=== PATIENT | female | born 1955 | race Caucasian/White ===

== ENCOUNTER 2025-03-21 06:25 | Day surgery (SDC) | payer MEDICARE, SELFPAY ==
--- OUTSIDE RECORDS SUMMARY | 2025-02-20 13:54 | XMS_ITS | Encounter Summary ---
Author Organization [facility], Address [address] [place] [phone] Phone Care Team Providers Care An Employee Sponsor Or Advocate And Name Role Phone Gisele Graves MD Primary Care Provider Reason for Visit * Reason Comments Med Change Request Encounter Details Date Type Department Care Team (Late st Contact Info) Description 07/04/2023 Refill [facility] [address] [place] [phone] Shae Muller PA [address] [place] [address] [place] [address] Social History Tobacco Use Types Packs/Day Years Used Date Smoking Tobacco: Never Alcohol Use Standard Drinks/Week Comments No 0 (1 standard drink = 0.6 oz pure alcohol) Alcoholic Drinks/day: Occasional social drink Comments Unknown Sex and Gender Information Value Date Recorded Sex Assigned at Not on file Legal Sex Female 4:35 PM EST Gender Identity Not on file Sexual Orientation Not on file documented as of this encounter Plan of Treatment Upcoming Encounters Date Type Department Care Team (Late st Contact Info) Description 04/16/2025 9:15 AM EDT Office Visit [facility] [address] [place] [phone] Jose Martínez MD [address] [place] [address] [place] [address] documented as of this encounter Visit Diagnoses Not on filedocumented in this encounter Care Teams An Employee Sponsor Or Advocate And Relationship Specialty Start Date End Date Gisele Graves MD [address] [place] [phone] PCP - General Mathematical Technician 06/26/24 documented as of this encounter
--- OUTSIDE RECORDS SUMMARY | 2025-02-20 13:54 | XMS_ITS | Encounter Summary ---
Author Organization [facility], Address [address] [place] [phone] Phone Care Team Providers Care Scanner Supervisor Name Role Phone Gisele Graves MD Primary Care Provider [phone] Reason for Visit * Reason Comments Med Refill Encounter Details Date Type Department Care Team (Late Contact Info) Description 09/07/2020 [facility] [address] [place] [phone] Billy Marks MD [address] [place] [address] [place] [address] Social History Tobacco Use Types Packs/Day Years [...] Encounters Date Type Department Care Team (Late Contact Info) Description 04/16/2025 9:15 AM EDT Office Visit [facility] [address] [place] [address] Jose Martínez MD [address] [place] [address] [place] [address] documented as of this encounter Visit Diagnoses Not on filedocumented in this encounter Care Teams Scanner Supervisor Relationship Specialty Start Date End Date Gisele Graves MD [address] [place] [phone] PCP - General Sand Digger 06/26/24 documented as of this encounter
--- OUTSIDE RECORDS SUMMARY | 2025-02-20 13:54 | XMS_ITS | Encounter Summary ---
Author Organization [facility], Address [address] [place] [phone] Phone Care Team Providers Care Telemetry Nurse Name Role Phone Gisele Graves MD Primary Care Provider [phone] Encounter Details Date Type Department Care Team (Late st Contact Info) Description 04/29/2024 Documentation Only [facility] [place], [address] [place] [address] Serene MontesAIKEN, [place] [address] [place] [address] Social History Tobacco Use Types Packs/Day Years [...] Visit [facility] [address] [place] [address] Jose Martínez MD [address] [facility] [place] [address] documented as of this encounter Visit Diagnoses Not on filedocumented in this encounter Care Teams Telemetry Nurse Relationship Specialty Start Date End Date Gisele Graves MD [address] [place] [phone] PCP - General Pharmacy Care Coordinator 06/26/24 documented as of this encounter
--- OUTSIDE RECORDS SUMMARY | 2025-02-20 13:54 | XMS_ITS | Patient Health Record ---
Author Organization [facility] Address [address] [place] [address] Care Team Providers Care Vp Software Support Name Role Phone Jo Graves Primary Care Provider Sanjiv Salcido Unavailable [phone] Allergies No Known Allergies Reason For Referral Referring Provider First Name Jo Referring Provider Last Name Star Referred Organization [facility] Referred Provider Sanjiv Baron Referred Address [address] [facility],[place], [place],[address], Referred Provider Specialty Gastroentero logy General Notes Kathy Lemus 2024 09:27:45 AM >REQUESTED AN O BLUE REFERRAL FOR VISIT WITH DR BARON ON 12-17-24. CALL[address] DR GRAVES Referral Priority Routine Medications Medication SIG (Take, Route, Frequency, Duration) Notes Start Date End Date Status Tacrolimus 1 MG as directed Orally Active Carvedilol 25 MG 1 tablet with food O rally Twice a day Active Calcium Active Mycophenolic Acid 180 MG 2 tablets Orall y Twice a day Active Fosamax Active Pravastatin Sodium 20 MG TAKE 1 TABLET B Y MOUTH EVERY DAY Oral for 90 Days Activ e Vitamin D 2000 UNIT 1 tablet Orally Once a day Active Decatur 3 Active Allopurinol 100 MG Oral for 90 Days Active valGANciclovir HCl 450 MG TAKE 1 TABLET DAILY Oral for 30 Days Active Lisinopril 40 MG 1 tablet Orally Once a day Active PredniSONE (Marcello) 5 MG 1 Orally QD Active Problems Problem Type SNOMED Code ICD Code Onset Dates Problem Status W/U Status Risk Notes Problem 217826282 Encounter for screening for malignant neoplasm of colon (Z12.11) Active confirmed Problem Dysphagia (31197948) Dysphagia (R13.10) Active confirmed Problem 30267810 Preprocedural examination (Z01.818) Active confirmed Problem Gastroesophageal reflux disease (438737061) GERD (gastroesophagea l reflux disease) (K21.9) Active confirmed Vital Signs Blood pressure diastolic 77 mm Hg 12/17/2024 Height 66.5 in 12/17/2024 Blood pressure systolic 11 mm Hg 12/17/2024 Weight 162 lbs 12/17/2024 BMI 25.75 kg/m2 12/17/2024 Procedures Procedure Date Ordered Date Performed Result Body Sit e UPPER GI ENDOSCOPY BALLOOON DILATION OF ESOPH 12/17/2024 N/A COLONOSCOPY 12/17/2024 N/A Encounters Encounter Location Date Provider Diagnosis [facility] [address] [place] [address] 12/17/2024 Sanjiv Baron Encounter for screening for malignant neoplasm of colon Z12.11 ; GERD (gastroesophageal reflux disease) K21.9 and Dysphagia R13.10 Assessments Encounter Date Diagnosis (ICD Code) Assessment Notes Treatment Notes Treatment Clinical Notes Section Notes 12/17/2024 Encounter for screening for malignant neoplasm of colon (ICD-10 - Z12.11) Ask the Diesel Powerplant Supervisor which clear beverage would be best for you to mix the Miralax in. Be careful eating and swallowing in general. Overall, Kelvin appears well. I did recommend a colonoscopy for screening purposes given her age, good clinical appearance, and her last exam being in 2014. We did review the rationale for this in regard to colon cancer prevention. Full consent has been obtained for this, including risks of bleeding and perforation. She will have a MiraLAX prep and I advised her to speak with her principal database developer to see what they would recommend as far as a clear liquid beverage so as to avoid any excess salt intake. I have also recommended an upper endoscopy on the same day given her longstanding reflux and intermittent dysphagia so as to rule out anything such as Chen's esophagus, esophageal stricture, significant esophagitis, and/or a hiatal hernia. We did review that depending upon the findings I can perform a balloon dilation at that time if she has an esophageal stricture or ring. Depending upon the endoscopic findings she may benefit from some chronic acid suppression with something such as a PPI or H2 smith. Full consent has been obtained from her for the upper endoscopy, including risks of bleeding and perforation. Both procedures will be done with monitored anesthesia care. Kelvin and her were comfortable with this plan. Thank you again for allowing me to participate in Kelvin's care. I shall continue to keep you advised of her progress. 12/17/2024 GERD (gastroesopha geal reflux disease) (ICD-10 - K21.9) Overall, Kelvin appears well. I did recommend a colonoscopy for screening purposes given her age, good clinical appearance, and her last exam being in 2014. We did review the rationale for this in regard to colon cancer prevention. Full consent has been obtained for this, including risks of bleeding and perforation. She will have a MiraLAX prep and I advised her to speak with her principal database developer to see what they would recommend as far as a clear liquid beverage so as to avoid any excess salt intake. I have also recommended an upper endoscopy on the same day given her longstanding reflux and intermittent dysphagia so as to rule out anything such as Chen's esophagus, esophageal stricture, significant esophagitis, and/or a hiatal hernia. We did review that depending upon the findings I can perform a balloon dilation at that time if she has an esophageal stricture or ring. Depending upon the endoscopic findings she may benefit from some chronic acid suppression with something such as a PPI or H2 smith. Full consent has been obtained from her for the upper endoscopy, including risks of bleeding and perforation. Both procedures will be done with monitored anesthesia care. Kelvin and her were comfortable with this plan. Thank you again for allowing me to participate in Kelvin's care. I shall continue to keep you advised of her progress. 12/17/2024 Dysphagia (ICD-10 - R13.10) Overall, Kelvin appears well. I did recommend a colonoscopy for screening purposes given her age, good clinical appearance, and her last exam being in 2014. We did review the rationale for this in regard to colon cancer prevention. Full consent has been obtained for this, including risks of bleeding and perforation. She will have a MiraLAX prep and I advised her to speak with her principal database developer to see what they would recommend as far as a clear liquid beverage so as to avoid any excess salt intake. I have also recommended an upper endoscopy on the same day given her longstanding reflux and intermittent dysphagia so as to rule out anything such as Chen's esophagus, esophageal stricture, significant esophagitis, and/or a hiatal hernia. We did review that depending upon the findings I can perform a balloon dilation at that time if she has an esophageal stricture or ring. Depending upon the endoscopic findings she may benefit from some chronic acid suppression with something such as a PPI or H2 smith. Full consent has been obtained from her for the upper endoscopy, including risks of bleeding and perforation. Both procedures will be done with monitored anesthesia care. Kelvin and her were comfortable with this plan. Thank you again for allowing me to participate in Kelvin's care. I shall continue to keep you advised of her progress. Plan Of Treatment Pending Test Test Name Order Date UPPER GI ENDOSCOPY BALLOOON DILATION OF ESOPH 12/17/2024 COLONOSCOPY 12/17/2024 Future Test Test Name Order Date COLONOSCOPY 04/01/2015 Next Appt Details Provider Name:Sanjiv Baron , 03/21/2025 07:30:00 AM, [address] [place] [address], [phone], Insurance Providers Payer Name Payer Address Payer Phone Subscriber Number Group Number Insured Name Patient Relationship to Insured Coverage Start Date Coverage End Date [facility] [employer] [address] [place] [address] [id number] KELVIN RODRÍGUEZ Self - patient is the insured Medical (General) History Medical History History ICD Code Colonoscopy 11/08/2004- sigmoid divertic ulosis and internal hemorrhoids Polycystic kidney disease- e ventual renal failure and renal transplant as below- sees Dr. 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
--- OUTSIDE RECORDS SUMMARY | 2025-02-20 13:54 | XMS_ITS | Encounter Summary ---
Author Organization [facility], Address [address] [place] [phone] Phone Care Team Providers Care Pathology Technologist Name Role Phone Gisele Graves MD Primary Care Provider [phone] Reason for Visit * Reason Comments Med Refill Encounter Details Date Type Department Care Team (Late Contact Info) Description 06/21/2019 [facility]ill [facility] [address] [place] [phone] Billy Marks MD [address] [facility] [place] [address] Social History Tobacco Use Types Packs/Day Years Used Date Smoking Tobacco: Never Alcohol Use Standard Drinks/Week Comments No 0 (1 standard drink = 0.6 oz pur e alcohol) Comments Unknown Sex and Gender Information Value Date Recorded Sex Assigned at Not on file Legal Sex Female 4:35 PM EST Gender Identity Not on file Sexual Orientation Not on file documented as of this encounter Plan of Treatment Upcoming Encounters Date Type Department Care Team (Late Contact Info) Description 04/16/2025 9:15 AM EDT Office Visit [facility] [address] [place] [address] Jose Martínez MD [address] [facility] [place] [address] documented as of this encounter Visit Diagnoses Not on filedocumented in this encounter Care Teams Pathology Technologist Relationship Specialty Start Date End Date Gisele Graves MD [address] [place] [phone] PCP - General Sales Intern 06/26/24 documented as of this encounter
--- OUTSIDE RECORDS SUMMARY | 2025-02-20 13:54 | XMS_ITS | Encounter Summary ---
Author Organization [facility], Address [address] [place] [phone] Phone Care Team Providers Care System Support Administrator Name Role Phone Gisele Graves MD Primary Care Provider Reason for Visit * Reason Onset Date Comments Med Refill 10/16/2024 Encounter Details Date Type Department Care Team (Late st Contact Info) Description 10/16/2024 [facility]ill [facility] [address] [place] [address] Jose Martínez MD [address] [place] [address] [place] [address] Social History Tobacco Use Types [...] Visit [facility] [address] [place] [phone] Jose Martínez MD [address] [place] [address] [place] [address] documented as of this encounter Visit Diagnoses Not on filedocumented in this encounter Care Teams System Support Administrator Relationship Specialty Start Date End Date Gisele Graves MD [address] [place] [phone] PCP - General Flagman 06/26/24 documented as of this encounter
--- OUTSIDE RECORDS SUMMARY | 2025-02-20 13:54 | XMS_ITS | Clinical Summary ---
Author Organization [facility], Address [address] [place] [address] [place] [address] Phone Care Team Providers Care Applications Specialist Name Role Phone Gisele Graves MD Primary Care Provider [phone] Allergies Active Allergy Reactions Criticality Noted Date Comments Other Other (see comments) 07/22/2019 Medications pravastatin (PRAVACHOL) 10 MG tablet Take 10 mg by mouth 09/29/19 24 Active amoxicillin (AMOXIL) 500 MG capsule Take 4 capsules (2,000 mg total) by mouth 1 (one) time each day Take 4 capsules one hour prior to dental appointment 12 capsule 1 08/29/19 25 Active allopurinol (ZYLOPRIM) 100 MG tablet Take 1 tablet (100 mg total) by mouth 1 (one) time each day 90 tablet 3 10/17/19 25 026 Active carvedilol (Coreg) 25 MG tablet Take 1 tablet (25 mg total) by mouth in the morning and 1 tablet (25 mg total) in the evening. Take with meals. 180 tablet 3 10/17/19 25 026 Active lisinopril 20 MG tablet Take 2 tablets (40 mg total) by mouth 1 (one) time each day 180 tablet 3 10/17/19 25 026 Active predniSONE 5 MG tablet Take 1 tablet (5 mg total) by mouth 1 (one) time each day 90 tablet 3 10/17/19 25 Active mycophenolate (MYFORTIC) 180 MG EC tablet Take 1 tablet (180 mg total) by mouth in the morning and 1 tablet (180 mg total) in the evening. 180 tablet 3 11/14/19 25 026 Active valGANciclovir (Valcyte) 450 MG tabletIndications:His tory of renal transplant,Stage 3b chronic kidney disease (HCC),Cytomegalovirus infection (HCC) Take 1 tablet (450 mg total) by mouth every other day Take 1 tab daily 15 tablet 11 01/02/20 25 026 Active tacrolimus (Prograf) 0.5 MG capsuleIndications:Hi story of renal transplant,History of immunosuppressive therapy,Stage 3b chronic kidney disease (HCC) Take 1 capsule (0.5 mg total) by mouth in the morning and 1 capsule (0.5 mg total) in the evening. 180 capsule 3 01/15/20 25 026 Active Active Problems Problem Noted Date Diagnosed Date Cytomegalovirus infection 10/01/2024 Stage 3b chronic kidney disease 07/04/2023 Caregiver role strain 02/08/2023 02/21/2023 Statin not tolerated 07/09/2022 Subclinical hypothyroidism 04/06/2021 Memory impairment 03/17/2020 Essential hypertension 07/23/2019 Chronic kidney disease due to hypertension 07/22 History of immunosuppressive therapy 07/22/2019 History of renal transplant 07/22/2019 Hyperlipidemia 07/22/2019 Hyperuricemia 07/22/2019 Resolved Problems Problem Noted Date Diagnosed Date Resolved Date Thyroid nodule 04/06/2021 02/21/2023 Diarrhea 11/24/2020 02/21/2023 Knee pain <Right side> 07/21/202002/21 Chronic kidney disease stage 4 07/22/2019 11/14/2023 Encounters Date Type Department Care Team Description 02/05/2025 9:45 AM EDT Office Visit [facility] [address] [place] [address] Jose Martínez MD History of renal transplant (Primary Dx); History of immunosuppressive therapy; Stage 3b chronic kidney disease (HCC); Cytomegalovirus infection (HCC) 01/28/2025 Orders Only [facility], [address] [place] [address] Serene Montes MA History of renal transplant (Primary Dx); History of immunosuppressive therapy; Stage 3b chronic kidney disease (HCC); Hypovolemia; Hyperlipidemia, not otherwise specified; Other iron deficiency anemia; Other specified hypoparathyroidism (HCC); Albuminuria, not otherwise specified; BK virus nephropathy; 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/2025 Orders Only [facility] [address] [place] [address] Anette Graves RN Stage 3b chronic kidney disease (HCC) (Primary Dx); History of renal transplant; History of immunosuppressive therapy 01/14/2025 Telephone [facility] [address] [place] [address] Anette Graves RN 01/10/2025 Office Communication [facility] [address] [place] [address] Anette Graves RN 01/07/2025 Orders Only [facility] [address] [place] [address] Anette Graves RN History of renal transplant (Primary Dx); History of immunosuppressive therapy; Cytomegalovirus infection (HCC); Stage 3b chronic kidney disease (HCC) 01/01/2025 Refill [facility] [address] [place] [address] Jose Martínez MD History of renal transplant; Stage 3b chronic kidney disease (HCC); Cytomegalovirus infection (HCC) 12/11/2024 9:00 AM EDT Office Visit [facility] [address] [place] [address] Jose Martínez MD History of renal transplant (Primary Dx); History of immunosuppressive therapy; Stage 3b chronic kidney disease (HCC); History of cytomegalovirus infection 12/06/2024 Orders Only [facility] [address] [place] [address] Anette Graves RN Stage 3b chronic kidney disease (HCC) (Primary Dx); Cytomegalovirus infection (HCC); History of renal transplant 12/04/2024 Refill [facility] [address] [place] [phone] Jose Martínez MD History of renal transplant; Stage 3b chronic kidney disease (HCC); Cytomegalovirus infection (HCC) 12/02/2024 Orders Only [facility] [address] [place] [phone] Anette Graves RN History of renal transplant (Primary Dx); Stage 3b chronic kidney disease (HCC); Cytomegalovirus infection (HCC) 11/25/2024 Orders Only [facility] [address] [place] [address] Anette Graves RN Stage 3b chronic kidney disease (HCC) (Primary Dx); History of renal transplant; History of immunosuppressive therapy; Hyperlipidemia, not otherwise specified; Hyperuricemia; Subclinical hypothyroidism; Cytomegalovirus infection (HCC); Iron deficiency anemia, not otherwise specified; Vitamin D deficiency, not otherwise specified from Last 3 Months Immunizations Immunization Administration Dates Next Due Influenza Split High Dose Preservative Free IM 03/19/2015 Influenza Whole 04/08/2019 Influenza, MDCK, PF, Quadrivalent 04/08/2019 Influenza, MDCK, Quadrivalen t, with preservative 04/06/2021,04/03/2017 Influenza, Quadrivalent, Pre servative Free 03/30/2020 Influenza, Unspecified 03/23/2022,2020,03/30/2020,2017,05/16/2016,02/10/2014,04/09/2012,1 06/24/2005 Pfizer SARS-COV-2 03/05/2021,10/12/2020,09/22/19 21 Pneumococcal Conjugate 13-Valent 01/15/2020,06/20 SARS-CoV-2, Unspecified 04/05/2022,08/30/2021 Family History Medical History Relation Comments Hypertension Father Kidney disease Father Stroke Father Kidney disease Sibling 1 Diabetes Sibling 2 Hypertension Sibling 3 Relation Status Comments Father Sibling 1 Sibling 2 Sibling 3 Social History Tobacco Use Types Packs/Day Years Used Date Smoking Tobacco: Never Alcohol Use Standard Drinks/Week Comments No 0 (1 standard drink = 0.6 oz pure alcohol) Alcoholic Drinks/day: Occasional social drink Comments Unknown Sex and Gender Information Value Date Recorded Sex Assigned at Not on file Legal Sex Female 4:35 PM EST Gender Identity Not on file Sexual Orientation Not on file Last Filed Vital Signs Vital Sign Reading Time Taken Comments Blood Pressure 106/66 12/11/2024 9:29 AM EDT Pulse 66 09/30/2024 1:18 PM EDT Temperature 37.4 C (99.3 F) 02/13/2024 4:31 PM EDT Respiratory Rate 22 12/04/2017 12:00 PM EDT Oxygen Saturation - - Inhaled Oxygen Concentration - - Weight 75.4 kg (166 lb 3.2 oz) 09/30/2024 1:18 P M EDT Height 167.6 cm (5' 6 ) 05/28/2024 8:47 AM EST Body Mass Index 26.83 05/28/2024 8:47 AM EST Plan of Treatment Upcoming Encounters Date Type Department Care Team (Late st Contact Info) Description 04/16/2025 9:15 AM EDT Office Visit [facility] [address] [place] [address] Jose Martínez MD [address] [place] [address] [place] [phone] Health Maintenance Due Date Last Done Comments Breast Cancer Screening 1955 Colonoscopy (Post-Transplant Patient) 01/29/2020 Mammogram (Post-Transplant Patient) 01/29/2020 Pelvic Exam (Post-Transplant Patient) 01/29/2020 Pneumococcal Vaccine: 50+ Years (2 of 2 - PPSV23, PCV20, or PCV21) 03/11/2020 01/15/2020, 07/10/2017 Influenza Vaccine (#1) 2025 2, 04/06/2021, 04/06/2021, Additional history exists Pneumococcal Vaccine: Peds (0 to 5 Years) and At-Risk Patients (6 to 49 Years) Discontinued 01/15/2020, 07/10/2017 Hepatitis B Vaccine Aged Out No longe r eligible based on patient's age to complete this topic Procedures Procedure Name Priority Date/Time Associated Diagnosis Comments REFLEXIVE URINE CULTURE (HC) Routine 02/03/2025 9:09 AM EDT BK VIRUS, DNA, QUANTITATIVE Routine 02/03/2025 9:09 AM EDT History of renal transplant History of immunosuppressive therapy Stage 3b chronic kidney disease (HCC) Hypovolemia Hyperlipidemia, not otherwise specified Other iron deficiency anemia Other specified hypoparathyroidism (HCC) Albuminuria, not otherwise specified BK virus nephropathy Cytomegaloviral colitis (HCC) BK VIRUS, DNA, URINE, QUANTITATIVE Routine 02/03/2025 9:09 AM EDT History of renal transplant History of immunosuppressive therapy Stage 3b chronic kidney disease (HCC) Hypovolemia Hyperlipidemia, not otherwise specified Other iron deficiency anemia Other specified hypoparathyroidism (HCC) Albuminuria, not otherwise specified BK virus nephropathy Cytomegaloviral colitis (HCC) CMV DNA, QUANTITATIVE, PCR Routine 02/03/2025 9:09 AM EDT History of renal transplant History of immunosuppressive therapy Stage 3b chronic kidney disease (HCC) Hypovolemia Hyperlipidemia, not otherwise specified Other iron deficiency anemia Other specified hypoparathyroidism (HCC) Albuminuria, not otherwise specified BK virus nephropathy Cytomegaloviral colitis (HCC) URINALYSIS, COMPLETE Routine 02/03/2025 9:09 AM EDT History of renal transplant History of immunosuppressive therapy Stage 3b chronic kidney disease (HCC) Hypovolemia Hyperlipidemia, not otherwise specified Other iron deficiency anemia Other specified hypoparathyroidism (HCC) Albuminuria, not otherwise specified BK virus nephropathy Cytomegaloviral colitis (HCC) URINE ALBUMIN / CREATININE RATIO Routine 02/03/2025 9:09 AM EDT History of renal transplant History of immunosuppressive therapy Stage 3b chronic kidney disease (HCC) Hypovolemia Hyperlipidemia, not otherwise specified Other iron deficiency anemia Other specified hypoparathyroidism (HCC) Albuminuria, not otherwise specified BK virus nephropathy Cytomegaloviral colitis (HCC) PTH, INTACT Routine 02/03/2025 9:09 AM EDT History of renal transplant History of immunosuppressive therapy Stage 3b chronic kidney disease (HCC) Hypovolemia Hyperlipidemia, not otherwise specified Other iron deficiency anemia Other specified hypoparathyroidism (HCC) Albuminuria, not otherwise specified BK virus nephropathy Cytomegaloviral colitis (HCC) IRON PANEL (FE, TIBC, TSAT) Routine 02/03/2025 9:09 AM EDT History of renal transplant History of immunosuppressive therapy Stage 3b chronic kidney disease (HCC) Hypovolemia Hyperlipidemia, not otherwise specified Other iron deficiency anemia Other specified hypoparathyroidism (HCC) Albuminuria, not otherwise specified BK virus nephropathy Cytomegaloviral colitis (HCC) FERRITIN Routine 02/03/2025 9:09 AM EDT History of renal transplant History of immunosuppressive therapy Stage 3b chronic kidney disease (HCC) Hypovolemia Hyperlipidemia, not otherwise specified Other iron deficiency anemia Other specified hypoparathyroidism (HCC) Albuminuria, not otherwise specified BK virus nephropathy Cytomegaloviral colitis (HCC) CREATINE KINASE Routine 02/03/2025 9:09 AM EDT History of renal transplant History of immunosuppressive therapy Stage 3b chronic kidney disease (HCC) Hypovolemia Hyperlipidemia, not otherwise specified Other iron deficiency anemia Other specified hypoparathyroidism (HCC) Albuminuria, not otherwise specified BK virus nephropathy Cytomegaloviral colitis (HCC) ALT Routine 02/03/2025 9:09 AM EDT History of renal transplant History of immunosuppressive therapy Stage 3b chronic kidney disease (HCC) Hypovolemia Hyperlipidemia, not otherwise specified Other iron deficiency anemia Other specified hypoparathyroidism (HCC) Albuminuria, not otherwise specified BK virus nephropathy Cytomegaloviral colitis (HCC) AST Routine 02/03/2025 9:09 AM EDT History of renal transplant History of immunosuppressive therapy Stage 3b chronic kidney disease (HCC) Hypovolemia Hyperlipidemia, not otherwise specified Other iron deficiency anemia Other specified hypoparathyroidism (HCC) Albuminuria, not otherwise specified BK virus nephropathy Cytomegaloviral colitis (HCC) CBC AND DIFFERENTIAL Routine 02/03/2025 9:09 AM EDT History of renal transplant History of immunosuppressive therapy Stage 3b chronic kidney disease (HCC) Hypovolemia Hyperlipidemia, not otherwise specified Other iron deficiency anemia Other specified hypoparathyroidism (HCC) Albuminuria, not otherwise specified BK virus nephropathy Cytomegaloviral colitis (HCC) RENAL FUNCTION PANEL Routine 02/03/2025 9:09 AM EDT History of renal transplant History of immunosuppressive therapy Stage 3b chronic kidney disease (HCC) Hypovolemia Hyperlipidemia, not otherwise specified Other iron deficiency anemia Other specified hypoparathyroidism (HCC) Albuminuria, not otherwise specified BK virus nephropathy Cytomegaloviral colitis (HCC) MYCOPHENOLIC ACID AND METABO. Routine 02/03/2025 9:09 AM EDT History of renal transplant History of immunosuppressive therapy Stage 3b chronic kidney disease (HCC) Hypovolemia Hyperlipidemia, not otherwise specified Other iron deficiency anemia Other specified hypoparathyroidism (HCC) Albuminuria, not otherwise specified BK virus nephropathy Cytomegaloviral colitis (HCC) TACROLIMUS, HIGHLY SENSITIVE, LC/MS/MS Routine 02/03/2025 9:09 AM EDT History of renal transplant History of immunosuppressive therapy Stage 3b chronic kidney disease (HCC) Hypovolemia Hyperlipidemia, not otherwise specified Other iron deficiency anemia Other specified hypoparathyroidism (HCC) Albuminuria, not otherwise specified BK virus nephropathy Cytomegaloviral colitis (HCC) MICROSCOPIC EXAMINATION - DO NOT USE Routine 02/03/2025 9:09 AM EDT TACROLIMUS, HIGHLY SENSITIVE, LC/MS/MS Routine 01/24/2025 9:09 AM EDT Stage 3b chronic kidney disease (HCC) History of renal transplant History of immunosuppressive therapy RENAL FUNCTION PANEL Routine 01/24/2025 9:09 AM EDT Stage 3b chronic kidney disease (HCC) History of renal transplant History of immunosuppressive therapy RESULT2 Routine 01/18/2025 9:52 AM EDT SPECIMEN STATUS REPORT Routine 01/18/2025 9:52 AM EDT RESULT Routine 01/18/2025 9:52 AM EDT RESULT Routine 01/18/2025 9:52 AM EDT OVA AND PARASITE EXAMINATION Routine 01/18/2025 9:52 AM EDT CLOSTRIDIUM DIFFICILE TOXIN Routine 01/18/2025 9:52 AM EDT History of renal transplant History of immunosuppressive therapy Stage 3b chronic kidney disease (HCC) Cytomegalovirus infection (HCC) Diarrhea OVA AND PARASITE SCREEN Routine 01/18/2025 9:52 AM EDT History of renal transplant History of immunosuppressive therapy Stage 3b chronic kidney disease (HCC) Cytomegalovirus infection (HCC) Diarrhea STOOL CULTURE Routine 01/18/2025 9:52 AM EDT History of renal transplant History of immunosuppressive therapy Stage 3b chronic kidney disease (HCC) Cytomegalovirus infection (HCC) Diarrhea TACROLIMUS, HIGHLY SENSITIVE, LC/MS/MS Routine 01/17/2025 8:55 AM EDT CMV DNA, QUANTITATIVE, PCR Routine 01/17/2025 8:55 AM EDT RENAL FUNCTION PANEL Routine 01/17/2025 8:55 AM EDT CBC AND DIFFERENTIAL Routine 01/17/2025 8:55 AM EDT CMV DNA, QUANTITATIVE, PCR Routine 01/07/2025 10:18 AM EDT History of renal transplant History of immunosuppressive therapy Stage 3b chronic kidney disease (HCC) Cytomegalovirus infection (HCC) TACROLIMUS, HIGHLY SENSITIVE, LC/MS/MS Routine 01/07/2025 10:17 AM EDT History of renal transplant History of immunosuppressive therapy Stage 3b chronic kidney disease (HCC) RENAL FUNCTION PANEL Routine 12/10/2024 10:18 AM EDT Stage 3b chronic kidney disease (HCC) Cytomegalovirus infection (HCC) History of renal transplant CMV DNA, QUANTITATIVE, PCR Routine 12/10/2024 10:18 AM EDT Stage 3b chronic kidney disease (HCC) Cytomegalovirus infection (HCC) History of renal transplant CBC AND DIFFERENTIAL Routine 12/10/2024 10:18 AM EDT Stage 3b chronic kidney disease (HCC) Cytomegalovirus infection (HCC) History of renal transplant CMV DNA, QUANTITATIVE, PCR Routine 12/04/2024 1:38 PM EDT History of renal transplant Stage 3b chronic kidney disease (HCC) Cytomegalovirus infection (HCC) CBC AND DIFFERENTIAL Routine 12/04/2024 1:38 PM EDT History of renal transplant Stage 3b chronic kidney disease (HCC) Cytomegalovirus infection (HCC) REFLEXIVE URINE CULTURE (HC) Routine 11/26/2024 8:15 AM EDT BK VIRUS, DNA, QUANTITATIVE Routine 11/26/2024 8:15 AM EDT Stage 3b chronic kidney disease (HCC) History of renal transplant History of immunosuppressive therapy Hyperlipidemia, not otherwise specified Hyperuricemia Subclinical hypothyroidism Cytomegalovirus infection (HCC) Iron deficiency anemia, not otherwise specified Vitamin D deficiency, not otherwise specified BK VIRUS, DNA, URINE, QUANTITATIVE Routine 11/26/2024 8:15 AM EDT Stage 3b chronic kidney disease (HCC) History of renal transplant History of immunosuppressive therapy Hyperlipidemia, not otherwise specified Hyperuricemia Subclinical hypothyroidism Cytomegalovirus infection (HCC) Iron deficiency anemia, not otherwise specified Vitamin D deficiency, not otherwise specified CMV DNA, QUANTITATIVE, PCR Routine 11/26/2024 8:15 AM EDT Stage 3b chronic kidney disease (HCC) History of renal transplant History of immunosuppressive therapy Hyperlipidemia, not otherwise specified Hyperuricemia Subclinical hypothyroidism Cytomegalovirus infection (HCC) Iron deficiency anemia, not otherwise specified Vitamin D deficiency, not otherwise specified URINALYSIS, COMPLETE Routine 11/26/2024 8:15 AM EDT Stage 3b chronic kidney disease (HCC) History of renal transplant History of immunosuppressive therapy Hyperlipidemia, not otherwise specified Hyperuricemia Subclinical hypothyroidism Cytomegalovirus infection (HCC) Iron deficiency anemia, not otherwise specified Vitamin D deficiency, not otherwise specified URINE ALBUMIN / CREATININE RATIO Routine 11/26/2024 8:15 AM EDT Stage 3b chronic kidney disease (HCC) History of renal transplant History of immunosuppressive therapy Hyperlipidemia, not otherwise specified Hyperuricemia Subclinical hypothyroidism Cytomegalovirus infection (HCC) Iron deficiency anemia, not otherwise specified Vitamin D deficiency, not otherwise specified CREATINE KINASE Routine 11/26/2024 8:15 AM EDT Stage 3b chronic kidney disease (HCC) History of renal transplant History of immunosuppressive therapy Hyperlipidemia, not otherwise specified Hyperuricemia Subclinical hypothyroidism Cytomegalovirus infection (HCC) Iron deficiency anemia, not otherwise specified Vitamin D deficiency, not otherwise specified AST Routine 11/26/2024 8:15 AM EDT Stage 3b chronic kidney disease (HCC) History of renal transplant History of immunosuppressive therapy Hyperlipidemia, not otherwise specified Hyperuricemia Subclinical hypothyroidism Cytomegalovirus infection (HCC) Iron deficiency anemia, not otherwise specified Vitamin D deficiency, not otherwise specified ALT Routine 11/26/2024 8:15 AM EDT Stage 3b chronic kidney disease (HCC) History of renal transplant History of immunosuppressive therapy Hyperlipidemia, not otherwise specified Hyperuricemia Subclinical hypothyroidism Cytomegalovirus infection (HCC) Iron deficiency anemia, not otherwise specified Vitamin D deficiency, not otherwise specified PTH, INTACT Routine 11/26/2024 8:15 AM EDT Stage 3b chronic kidney disease (HCC) History of renal transplant History of immunosuppressive therapy Hyperlipidemia, not otherwise specified Hyperuricemia Subclinical hypothyroidism Cytomegalovirus infection (HCC) Iron deficiency anemia, not otherwise specified Vitamin D deficiency, not otherwise specified IRON PANEL (FE, TIBC, TSAT) Routine 11/26/2024 8:15 AM EDT Stage 3b chronic kidney disease (HCC) History of renal transplant History of immunosuppressive therapy Hyperlipidemia, not otherwise specified Hyperuricemia Subclinical hypothyroidism Cytomegalovirus infection (HCC) Iron deficiency anemia, not otherwise specified Vitamin D deficiency, not otherwise specified FERRITIN Routine 11/26/2024 8:15 AM EDT Stage 3b chronic kidney disease (HCC) History of renal transplant History of immunosuppressive therapy Hyperlipidemia, not otherwise specified Hyperuricemia Subclinical hypothyroidism Cytomegalovirus infection (HCC) Iron deficiency anemia, not otherwise specified Vitamin D deficiency, not otherwise specified MAGNESIUM Routine 11/26/2024 8:15 AM EDT Stage 3b chronic kidney disease (HCC) History of renal transplant History of immunosuppressive therapy Hyperlipidemia, not otherwise specified Hyperuricemia Subclinical hypothyroidism Cytomegalovirus infection (HCC) Iron deficiency anemia, not otherwise specified Vitamin D deficiency, not otherwise specified LIPID PANEL Routine 11/26/2024 8:15 AM EDT Stage 3b chronic kidney disease (HCC) History of renal transplant History of immunosuppressive therapy Hyperlipidemia, not otherwise specified Hyperuricemia Subclinical hypothyroidism Cytomegalovirus infection (HCC) Iron deficiency anemia, not otherwise specified Vitamin D deficiency, not otherwise specified URIC ACID Routine 11/26/2024 8:15 AM EDT Stage 3b chronic kidney disease (HCC) History of renal transplant History of immunosuppressive therapy Hyperlipidemia, not otherwise specified Hyperuricemia Subclinical hypothyroidism Cytomegalovirus infection (HCC) Iron deficiency anemia, not otherwise specified Vitamin D deficiency, not otherwise specified VITAMIN D 25 HYDROXY Routine 11/26/2024 8:15 AM EDT Stage 3b chronic kidney disease (HCC) History of renal transplant History of immunosuppressive therapy Hyperlipidemia, not otherwise specified Hyperuricemia Subclinical hypothyroidism Cytomegalovirus infection (HCC) Iron deficiency anemia, not otherwise specified Vitamin D deficiency, not otherwise specified CBC AND DIFFERENTIAL Routine 11/26/2024 8:15 AM EDT Stage 3b chronic kidney disease (HCC) History of renal transplant History of immunosuppressive therapy Hyperlipidemia, not otherwise specified Hyperuricemia Subclinical hypothyroidism Cytomegalovirus infection (HCC) Iron deficiency anemia, not otherwise specified Vitamin D deficiency, not otherwise specified RENAL FUNCTION PANEL Routine 11/26/2024 8:15 AM EDT Stage 3b chronic kidney disease (HCC) History of renal transplant History of immunosuppressive therapy Hyperlipidemia, not otherwise specified Hyperuricemia Subclinical hypothyroidism Cytomegalovirus infection (HCC) Iron deficiency anemia, not otherwise specified Vitamin D deficiency, not otherwise specified MYCOPHENOLIC ACID AND METABO. Routine 11/26/2024 8:15 AM EDT Stage 3b chronic kidney disease (HCC) History of renal transplant History of immunosuppressive therapy Hyperlipidemia, not otherwise specified Hyperuricemia Subclinical hypothyroidism Cytomegalovirus infection (HCC) Iron deficiency anemia, not otherwise specified Vitamin D deficiency, not otherwise specified TACROLIMUS, HIGHLY SENSITIVE, LC/MS/MS Routine 11/26/2024 8:15 AM EDT Stage 3b chronic kidney disease (HCC) History of renal transplant History of immunosuppressive therapy Hyperlipidemia, not otherwise specified Hyperuricemia Subclinical hypothyroidism Cytomegalovirus infection (HCC) Iron deficiency anemia, not otherwise specified Vitamin D deficiency, not otherwise specified MICROSCOPIC EXAMINATION - DO NOT USE Routine 11/26/2024 8:15 AM EDT from Last 3 Months Results * Reflexive Urine Culture (02/03/2025 9:09 AM EDT) Only the most recent of2 resultswithin the time period is included. Culture Result, Urine Final report [facility] Result Comment Jose Saba Comment: Culture shows less than 10,000 colony forming units of bacteria per milliliter of urine. This colony count is not generally considered to be clinically significant. 02/03/2025 9:09 AM EDT 02/03/2025 Jose Martínez MD LAB HISTORICAL-CONVERSIONS -UNSOLICITED RESULTS Final Result [facility] [address], [address] [place] [address] * Tacrolimus, Highly Sensitive, LC/MS/MS (02/03/2025 9:09 AM EDT) Only the most recent of5 resultswithin the time period is included. Tacrolimus by Immunoassay 7.9 5.0 - 20.0 ng/mL [facility] Comment: Detection Limit = 0.8 ng/mL Target steady state trough concentration for Tacrolimus varies based on type of organ transplant immunosuppressive protocol and other patient specific factors. Tacrolimus trough concentrations should be interpreted in conjunction with clinical assessments of rejection and tolerability. Values obtained with different assay methods cannot be used interchangeably due to differences in assay methods and cross-reactivty with metabolites, nor should correction factors be applied. Therefore, consistent use of one assay for individual patients is recommended. Tacrolimus assay performed by [facility] [employer]. 02/03/2025 9:09 AM EDT 02/03/2025 us Jose Martínez MD LAB BLOOD ORDERABLES Final Result [facility] [address] [place] [address] * (ABNORMAL) Urinalysis, Complete w/reflex to Culture (02/03/2025 9:09 AM EDT) Only the most recent of2 resultswithin the time period is included. Specific [place], Urine 1.014 1.005 - 1.030 [facility] pH Urine 5.5 5.0 - 7.5 [facility] Color, Urine Yellow Yellow [facility] Appearance Urine Cloudy(A) Clear [facility] [place] WBC Esterase Urine 3+(A) Negative [facility] Protein, Ur 1+(A) Negative/Tra ce [facility] Glucose, Ur Negative Negative [facility] Ketones, Urine Negative Negative [facility] [place] [phone] Blood Urine Trace(A) Negative [facility] Bilirubin Urine Negative Negative [facility] [place] Urobilinogen Urine 0.2 0.2 - 1.0 mg/dL [facility] Nitrite, Urine Negative Negative [facility] [place] Microscopic Examination See below: [facility] Comment:Microscopic was mechelle cated and was performed. URINALYSIS REFLEX Comment [facility] [phone] Comment:This specimen has re flexed to a Urine Culture. Urine Urine specimen obtained by clean catch procedure / Unknown 02/03/2025 9:09 AM EDT 02/03/2025 Jose Martínez MD LAB URINE ORDERABLES Final Result [facility] [address] [place] [address] * Mycophenolic Acid and Metabo. (02/03/2025 9:09 AM EDT) Only the most recent of2 resultswithin the time period is included. Mycophenolic Acid 2.2 1.0 - 3.5 ug/mL [facility] Mycophenolic Acid Glucuronide 63 35 - 100 ug/mL [facility] Blood Venous blood / Unknown 02/03/2025 9:09 AM EDT 02/03/2025 Narrative [facility] - 02/07/2025 6:06 PM EDT Test(s) 037771-Imkzijdfoaof Acid; 345986- Mycophenolic Acid Glucuronide was developed and its performance characteristics determined by [facility]. It has not been cleared or approved by the Food and Drug Administration. Jose Martínez MD LAB BLOOD ORDERABLES Final Result Performing Organization Address City/[facility]/ZIP Co de Phone Number [facility] [address] [place] [phone] * (ABNORMAL) Microscopic Examination (02/03/2025 9:09 AM EDT) Only the most recent of2 resultswithin the time period is included. WBC, Urine >30(A) 0 - 5 /hpf [facility] RBC, Urine None seen 0 - 2 /hpf [facility] Squamous Epithelial, Urine 0-10 0 - 10 /hpf [facility] Casts None seen None seen /lpf [facility] Bacteria, Urine None seen None seen/Few [facility] 02/03/2025 9:09 AM EDT 02/03/2025 Jose Martínez MD LAB MICROBIOLOGY - GENERAL ORDERABLES Final Result [facility] [address] [place] [address] * Iron Panel (Fe, TIBC, TSAT) (02/03/2025 9:09 AM EDT) Only the most recent of2 resultswithin the time period is included. TIBC 252 250 - 450 ug/dL [facility] UIBC 197 118 - 369 ug/dL [facility] Iron 55 27 - 139 ug/dL [facility] Iron Saturation (TSat) 22 15 - 55 % [facility] Blood Venous blood / Unknown 02/03/2025 9:09 AM EDT 02/03/2025 Jose Martínez MD LAB BLOOD ORDERABLES Final Result [facility] [address] [place] [address] * (ABNORMAL) Urine Albumin / Creatinine Ratio (02/03/2025 9:09 AM EDT) Only the most recent of2 resultswithin the time period is included. Creatinine, Ur 69.0 Not Estab. mg/dL [facility] Albumin, Urine 103.6 Not Estab. ug/mL [facility] Albumin/Creatin ine Ratio 150(H) 0 - 29 mg/g creat [facility] Comment: Normal: 0 - 29 Moderately increased: 30 - 300 Severely increased: >300 Urine Urine specimen obtained by clean catch procedure / Unknown 02/03/2025 9:09 AM EDT 02/03/2025 Result [facility] Jose Martínez MD LAB URINE ORDERABLES Final Result Performing Organization Address City/[facility]/ZIP Co de Phone Number [facility] [place] [address] [place] [address] * BK Virus Urine, Quant PCR (02/03/2025 9:09 AM EDT) Only the most recent of2 resultswithin the time period is included. BK VIRUS PCR, QUANT, U 209,000 Negative IU/mL [facility] Comment:The linear range of the assay is 200 - 100,000,000 IU/ml log10 BK Qn PCR Ur 5.320 log10 IU/mL [facility] Urine Urine specimen obtained by clean catch procedure / Unknown 02/03/2025 9:09 AM EDT 02/03/2025 Result [facility] Jose Martínez MD LAB URINE ORDERABLES Final Result Performing Organization Address City/[facility]/ZIP Co de Phone Number [facility] [place] [address] [place] [phone] * BK Virus DNA, Quant PCR (02/03/2025 9:09 AM EDT) Only the most recent of2 resultswithin the time period is included. BK VIRUS DNA, PCR Negative Negative IU/mL [facility] [place] Comment: No BK DNA detected. The linear range of the assay is 22 - 100,000,000 IU/mL. Blood Venous blood / Unknown 02/03/2025 9:09 AM EDT 02/03/2025 Result [facility] Jose Martínez MD LAB BLOOD ORDERABLES Final Result Performing Organization Address City/[facility]/ZIP Co de Phone Number [facility] [place] [address] [place] [address] * CMV PCR Quantitative (02/03/2025 9:09 AM EDT) Only the most recent of6 resultswithin the time period is included. CMV Quant DNA PCR Negative Negative IU/mL [facility] Comment: No CMV DNA detected. The quantitative range of this assay is 200 to 1 million IU/mL. Log 10 CMV QN DNA Plasma CANCELED log10 IU/mL [facility] Comment: Unable to calculate result since non-numeric result obtained for component test. Result canceled by the ancillary. Blood Venous blood / Unknown 02/03/2025 9:09 AM EDT 02/03/2025 Jose Martínez MD LAB BLOOD ORDERABLES Edite d Result - Final Performing Organization Address City/[facility]/ZIP Co de Phone Number [facility] [address] [place] [address] * (ABNORMAL) CBC and Differential (02/03/2025 9:09 AM EDT) Only the most recent of5 resultswithin the time period is included. WBC 3.9 3.4 - 10.8 x10E3/uL [facility] RBC 3.77 3.77 - 5.28 x10E6/uL [facility] Hemoglobin 11.6 11.1 - 15.9 g/dL [facility] Hematocrit 36.9 34.0 - 46.6 % [facility] MCV 98(H) 79 - 97 fL [facility] MCH 30.8 26.6 - 33.0 pg [facility] MCHC 31.4(L) 31.5 - 35.7 g/dL [facility] RDW 12.5 11.7 - 15.4 % [facility] Platelets 197 150 - 450 x10E3/uL [facility] Neutrophils Relative 62 Not Estab. % [facility] Lymphocytes Relative 27 Not Estab. % [facility] Monocytes 8 Not Estab. % [facility] Eosinophils Relative 1 Not Estab. % [facility] Basophils Relative 1 Not Estab. % [facility] Neutrophils Absolute 2.4 1.4 - 7.0 x10E3/uL [facility] Lymphocytes Absolute 1.1 0.7 - 3.1 x10E3/uL [facility] Monocytes Absolute 0.3 0.1 - 0.9 x10E3/uL [facility] Eosinophils Absolute 0.1 0.0 - 0.4 x10E3/uL [facility] Basophils Absolute 0.0 0.0 - 0.2 x10E3/uL [facility] Immature Granulocytes 0 Not Estab. % [facility] Immature Grans (Absolute) 0.0 0.0 - 0.1 x10E3/uL [facility] Blood Venous blood / Unknown 02/03/2025 9:09 AM EDT 02/03/2025 us Jose Martínez MD LAB BLOOD ORDERABLES Final Result [facility] [address] [place] [address] * ALT (02/03/2025 9:09 AM EDT) Only the most recent of2 resultswithin the time period is included. ALT (SGPT) 9 0 - 32 IU/L [facility] Blood Venous blood / Unknown 02/03/2025 9:09 AM EDT 02/03/2025 Jose Martínez MD LAB BLOOD ORDERABLES Final Result Performing Organization Address City/[facility]/ZIP Co de Phone Number [facility] [address] [place] [address] * AST (02/03/2025 9:09 AM EDT) Only the most recent of2 resultswithin the time period is included. AST (SGOT) 13 0 - 40 IU/L [facility] Blood Venous blood / Unknown 02/03/2025 9:09 AM EDT 02/03/2025 Jose Martínez MD LAB BLOOD ORDERABLES Final Result Performing Organization Address [facility] de Phone Number [facility] [address] [place] [address] * PTH, Intact (02/03/2025 9:09 AM EDT) Only the most recent of2 resultswithin the time period is included. PTH 59 15 - 65 pg/mL [facility] Blood Venous blood / Unknown 02/03/2025 9:09 AM EDT 02/03/2025 Jose Martínez MD LAB BLOOD ORDERABLES Final Result Performing Organization Address City/[facility] Co de Phone Number [facility] [address] [place] [address] * (ABNORMAL) Ferritin (02/03/2025 9:09 AM EDT) Only the most recent of2 resultswithin the time period is included. Ferritin 446(H) 15 - 150 ng/mL [facility] Blood Venous blood / Unknown 02/03/2025 9:09 AM EDT 02/03/2025 Jose Martínez MD LAB BLOOD ORDERABLES Final Result Performing Organization Address City/[facility] Co de Phone Number [facility] [address] [place] [address] * (ABNORMAL) CK (02/03/2025 9:09 AM EDT) Only the most recent of2 resultswithin the time period is included. Creatine Kinase (CK/CPK) 24(L) 32 - 182 U/L [facility] Blood Venous blood / Unknown 02/03/2025 9:09 AM EDT 02/03/2025 Jose Martínez MD LAB BLOOD ORDERABLES Final Result Performing Organization Address City/[facility] de Phone Number [facility] [address] [place] [address] * (ABNORMAL) Renal Function Panel (02/03/2025 9:09 AM EDT) Only the most recent of5 resultswithin the time period is included. Pathologist [facility] Glucose 82 70 - 99 mg/dL [facility] BUN 38(H) 8 - 27 mg/dL [facility] Creatinine 1.94(H) 0.57 - 1.00 mg/dL [facility] eGFR CKD-EPI CR 2020 27(L) >59 mL/min/1.7 3 [facility] BUN/Creatinine Ratio 20 12 - 28 [facility] Sodium 141 134 - 144 mmol/L [facility] Potassium 4.8 3.5 - 5.2 mmol/L [facility] Chloride 108(H) 96 - 106 mmol/L [facility] Bicarbonate (CO2) 17(L) 20 - 29 mmol/L [facility] Calcium 9.6 8.7 - 10.3 mg/dL [facility] Albumin 3.8 3.8 - 4.8 g/dL [facility] Phosphorus 3.1 3.0 - 4.3 mg/dL [facility] Blood Venous blood / Unknown 02/03/2025 9:09 AM EDT 02/03/2025 Jose Martínez MD LAB BLOOD ORDERABLES Final Result [facility] [place] [address] [place] [address] * RESULT (01/18/2025 9:52 AM EDT) C Diff Toxin B Comment [facility] [place] Comment: Negative No cytotoxin detected. 01/18/2025 9:52 AM EDT 01/18/2025 Jose Martínez MD LAB BLOOD ORDERABLES Final Result [facility] [place] [address] [place] [address] * SPECIMEN STATUS REPORT (01/18/2025 9:52 AM EDT) Specimen Status Comment [facility] Comment: Test Code Change Test Code Change Please note that the Microbiology test code was changed to reflect the specimen source or transport received. 01/18/2025 9:52 AM EDT 01/18/2025 Jose Martínez MD LAB BLOOD ORDERABLES Final Result Performing Organization Address City/[facility]/ZIP Co de Phone Number [facility] [address] [place] [address] * RESULT2 (01/18/2025 9:52 AM EDT) Result Comment [facility] Comment:No Campylobacter spe cies isolated. Result 1 Comment [facility] Comment:No Salmonella or Renetta gella recovered. 01/18/2025 9:52 AM EDT 01/18/2025 Jose Martínez MD LAB BLOOD ORDERABLES Final Result Performing Organization Address [facility] Co de Phone Number [facility] [address] [place] [address] * Result (01/18/2025 9:52 AM EDT) Result Comment [facility] Comment: No ova, cysts, or parasites seen. One negative specimen does not rule out the possibility of a parasitic infection. 01/18/2025 9:52 AM EDT 01/18/2025 Jose Martínez MD LAB MICROBIOLOGY - GENERAL ORDERABLES Final Result Performing Organization Address City/[facility] Co de Phone Number [facility] [address] [place] [address] * Ova and parasite examination (01/18/2025 9:52 AM EDT) Ova + Parasite Exam Final report [facility] [phone] Comment: These results were obtained using wet preparation(s) and trichrome stained smear. This test does not include testing for Cryptosporidium parvum, Cyclospora, or Microsporidia. 01/18/2025 9:52 AM EDT 01/18/2025 Comment:[facility] [phone] Jose Martínez MD LAB MICROBIOLOGY - GENERAL ORDERABLES Final Result Performing Organization Address [facility] Co de Phone Number [facility] [address] [place] [address] * Clostridium difficile toxin (01/18/2025 9:52 AM EDT) C Diff Toxin B Final report [facility] Comment:Reference Range: Neg ative Stool Rectal contents / Unknown 01/18/2025 9:52 AM EDT 01/18/2025 Comment:ST MELENDEZ- [phone] Jose Martínez MD LAB MICROBIOLOGY - GENERAL ORDERABLES Final Result Performing Organization Address [facility] de Phone Number [facility] [address] [place] [address] * Stool culture (01/18/2025 9:52 AM EDT) CAMPYLOBACTER , CULTURE Final report [facility] SHIGELLA/EIEC E COLI Negative Negative [facility] Salmonella/Sh igella Screen Final report [facility] Stool Rectal contents / Unknown 01/18/2025 9:52 AM EDT 01/18/2025 Comment:[facility] MELENDEZ- [id number] Jose Martínez MD LAB MICROBIOLOGY - GENERAL ORDERABLES Final Result Performing Organization Address [facility]/ZIP Co de Phone Number [facility] [place] [address] [place] [address] * Vitamin D 25 Hydroxy (11/26/2024 8:15 AM EDT) Vitamin D, 25-OH, Total 30.8 30.0 - 100.0 ng/mL [facility] Comment: Vitamin D deficiency has been defined by the [place] of [employer] and an Endocrine Society practice guideline as a level of serum 25-OH vitamin D less than 20 ng/mL (1,2). The Endocrine Society went on to further define vitamin D insufficiency as a level between 21 and 29 ng/mL (2). 1. IOM ([place] of [employer]). 2010. Dietary reference intakes for calcium and D. [place]: The National Academies Press. 2. Allan MF, Barbara LEAVITT, Flako CERDA, et al. Evaluation, treatment, and prevention of vitamin D deficiency: an Endocrine Society clinical practice guideline. JCEM. 2010; 96(7):1911-30. Blood Venous blood / Unknown 11/26/2024 8:15 AM EDT 11/26/2024 Jose Martínez MD LAB BLOOD ORDERABLES Final Result Performing Organization Address City/[facility]/ZIP Co de Phone Number [email or web address] [place] [address] [place] [address] * Uric Acid (11/26/2024 8:15 AM EDT) Uric Acid 5.9 3.1 - 7.9 mg/dL [facility] Comment:Therapeutic target f or gout patients: <6.0 Blood Venous blood / Unknown 11/26/2024 8:15 AM EDT 11/26/2024 Jose Martínez MD LAB BLOOD ORDERABLES Final Result [email or web address] [place] [address] [place] [address] * Magnesium (11/26/2024 8:15 AM EDT) Magnesium 2.0 1.6 - 2.3 mg/dL [facility] Blood Venous blood / Unknown 11/26/2024 8:15 AM EDT 11/26/2024 Jose Martínez MD LAB BLOOD ORDERABLES Final Result [facility] [address] [place] [address] * (ABNORMAL) Lipid panel (11/26/2024 8:15 AM EDT) Cholesterol 266(H) 100 - 199 mg/dL [facility] Triglycerides 294(H) 0 - 149 mg/dL [facility] HDL 48 >39 mg/dL [facility] VLDL Cholesterol [place] 55(H) 5 - 40 mg/dL [facility] LDL Calculated 163(H) 0 - 99 mg/dL [facility] Blood Venous blood / Unknown 11/26/2024 8:15 AM EDT 11/26/2024 Jose Martínez MD LAB BLOOD ORDERABLES Final Result [facility] [address] [place] [address] from Last 3 Months Insurance [facility] Care Teams Applications Specialist Relationship Specialty Start Date End Date Gisele Graves MD [address] [place] [address] [phone] PCP - General Mail Processing Associate 06/26/24
--- OUTSIDE RECORDS SUMMARY | 2025-02-20 13:54 | XMS_ITS | Encounter Summary ---
Author Organization [facility], Address [address] [place] [phone] Phone Care Team Providers Care Master Ocean Name Role Phone Gisele Graves MD Primary Care Provider [phone] Encounter Details Date Type Department Care Team (Late st Contact Info) Description 05/28/2024 Telephone [facility], - Vascular Access Center [address] [place] [address] [place] [address] Joana Alexander [address] [place] [phone] Social History Tobacco Use Types Packs/Day [...] Visit [facility] [address] [place] [address] Jose Martínez MD [address] [place] [address] documented as of this encounter Visit Diagnoses Not on filedocumented in this encounter Care Teams Master Ocean Relationship Specialty Start Date End Date Gisele Graves MD [address] [place] [phone] PCP - General Video Operator 06/26/24 documented as of this encounter
[2025-03-19 14:02] VITALS: BMI 25.8
--- NOTE | 2025-03-20 10:15 | HO.ANESPROP2 ---
Documented by User: Sona Hairston NP 03/20/25 10:15 HPI - Anesthesia Eval Consult details Narrative: 69yo F for Colonoscopy, Upper Endoscopy with Balloon Dilitation PMFSH Past Medical History Medical History Hyperlipidemia HTN (hypertension) Polycystic kidney disease Surgical History Surgical History Hx of bilateral cataract extraction History of right oophorectomy Hx of section Hx of tubal ligation Hx of kidney transplant H/O colonoscopy Social History Social History Are you a primary career technology teacher to a significant other at home: No Do you presently have visiting nurse or other home services: No Patient Tobacco Use Status: Never used Tobacco Use of substances other than those prescribed or required for medical reasons: No Have you been hit, kicked, punched, or otherwise hurt by someone within the past year? If so, by whom?: No Are you DNR?: No Advance Directives: No Advance Directives Information Provided: Yes Patient : No : No Poor oral hygiene: No Meds Allergies Allergy/AdvReac Type Severity Reaction Status Date / Time cashew nut Allergy Intermediate rash/itchin Verified 03/21/25 06:49 g Home Medications ?Medication ?Instructions ?Recorded ?Confirmed ?Last Taken ?Type allopurinol 100 mg tablet 100 mg PO DAILY 03/19/25 03/19/25 Unknown History carvedilol 25 mg tablet 25 mg PO BID 03/19/25 03/19/25 03/21/25 History lisinopril 20 mg tablet 40 mg PO DAILY 03/19/25 03/19/25 Unknown History mycophenolate sodium 180 mg 180 mg PO BID 03/19/25 03/19/25 Unknown History tablet,delayed release pravastatin 20 mg tablet 20 mg PO DAILY 03/19/25 03/19/25 Unknown History prednisone 5 mg tablet 5 mg PO DAILY 03/19/25 03/19/25 Unknown History tacrolimus 0.5 mg capsule, 0.5 mg PO BID 03/19/25 03/19/25 Unknown History immediate-release valganciclovir 450 mg tablet 450 mg PO DAILY 03/19/25 03/19/25 Unknown History Exam Height,Weight and Vital Signs: Height 5 ft 6.5 in Weight 73.482 kg Assessment and Plan Assessment Anesthesia Assessment: Chart Reviewed Documented by User: Nita Zavala MD 03/21/25 07:48 PMFSH Past Medical History Medical History Hyperlipidemia HTN (hypertension) Polycystic kidney disease Surgical History Surgical History Hx of bilateral cataract extraction History of right oophorectomy Hx of section Hx of tubal ligation Hx of kidney transplant H/O colonoscopy History of Problems with Anesthesia: No Social History Social History Are you a primary career technology teacher to a significant other at home: No Do you presently have visiting nurse or other home services: No Patient Tobacco Use Status: Never used Tobacco Use of substances other than those prescribed or required for medical reasons: No Have you been hit, kicked, punched, or otherwise hurt by someone within the past year? If so, by whom?: No Are you DNR?: No Advance Directives: No Advance Directives Information Provided: Yes Patient : No : No Poor oral hygiene: No Meds Allergies Allergy/AdvReac Type Severity Reaction Status Date / Time cashew nut Allergy Intermediate rash/itchin Verified 03/21/25 06:49 g Home Medications ?Medication ?Instructions ?Recorded ?Confirmed ?Last Taken ?Type allopurinol 100 mg tablet 100 mg PO DAILY 03/19/25 03/19/25 Unknown History carvedilol 25 mg tablet 25 mg PO BID 03/19/25 03/19/25 03/21/25 History lisinopril 20 mg tablet 40 mg PO DAILY 03/19/25 03/19/25 Unknown History mycophenolate sodium 180 mg 180 mg PO BID 03/19/25 03/19/25 Unknown History tablet,delayed release pravastatin 20 mg tablet 20 mg PO DAILY 03/19/25 03/19/25 Unknown History prednisone 5 mg tablet 5 mg PO DAILY 03/19/25 03/19/25 Unknown History tacrolimus 0.5 mg capsule, 0.5 mg PO BID 03/19/25 03/19/25 Unknown History immediate-release valganciclovir 450 mg tablet 450 mg PO DAILY 03/19/25 03/19/25 Unknown History Exam Airway Mallampati Class: III TM Dist: >3cm Neck ROM: Full Loose/Missing/Broken Teeth: No Heart: RRR Lungs: CTA Assessment and Plan Assessment Anesthesia Assessment: Anesthesia Plan Discussed Final Anesthetic Review History of Problems with Anesthesia: No NPO: Yes ASA Class: III Final Preanesthetic Review: Meds/Allgs Chart Reviewed, Consent Obtained/Reviewed and Anes Risks/Benef Reviewed Patient Risk: Intermediate Procedure Risk: Intermediate Anesthetic Plan Anesthetic Plan: MAC: Disposition: Standard PACU
[2025-03-21 06:54] VITALS: BMI 23.7
[2025-03-21] MEDS: Lactated Ringers 1,000 ML 100 ML IVCONT (07:01)
[2025-03-21 09:00] VITALS: BP 100/57; PULSE 55; RESP 16; TEMP 36.1; O2SAT 100
[2025-03-21 09:15] VITALS: BP 107/60; PULSE 53; RESP 18; TEMP 36.6; O2SAT 99
--- NOTE | 2025-03-21 10:11 | OP_ITS ---
DATE OF SERVICE: 03/21/2025 SURGEON: Sanjiv Umana MD INDICATIONS: The patient presents for evaluation of gastroesophageal reflux, dysphagia, and colorectal cancer screening. Full consent has been obtained from her for this, including risks of bleeding and perforation. PREOPERATIVE DIAGNOSIS: Gastroesophageal reflux, dysphagia, colorectal cancer screening. POSTOPERATIVE DIAGNOSIS: Gastroesophageal reflux, dysphagia, colorectal cancer screening, esophageal stricture at gastroesophageal junction, esophagitis with erosions, rule out CMV esophagitis, diverticulosis, internal and external hemorrhoids. PROCEDURE PERFORMED: Esophagogastroduodenoscopy with balloon dilation and biopsies, and colonoscopy to the cecum. ESTIMATED BLOOD LOSS: COMPLICATIONS: ANESTHESIA: Medication used, monitored anesthesia care. ASSISTANTS: SPECIMENS: DESCRIPTION OF PROCEDURE: The patient was placed in the left lateral decubitus position. The Olympus video gastroscope was passed in the posterior oropharynx and upper esophagus under direct vision. The scope was passed slowly to the distal esophagus. The gastroesophageal junction appeared at 35 cm. With insufflation of air, I was able to visualize a fibrotic appearing stricture with some overlying inflammation, but no ulceration or mass. The scope passed this easily. There was a small hiatal hernia. The scope was advanced to pylorus and the duodenum was cannulated to the descending portion. The duodenum including the bulb appeared normal without mass or ulceration. The scope was withdrawn back to the stomach. The gastric antrum and body appeared normal with good peristalsis. The scope was retroflexed visualizing the proximal stomach carefully. In the very proximal stomach just beneath the EG junction was some slight nodularity. The remainder of the proximal stomach appeared normal. The scope was straightened. The scope was withdrawn back to the esophagus. Given her symptomatology and the evidence of the fibrotic stricture, I did use a [employer] incremental balloon to dilate the stricture from 15 mm to 16.5 mm to 18 mm at the recommended pressure for between 30 and 60 seconds each. There was evidence of disruption of the stricture with heme noted. The esophagus between 25 and 35 cm was notable for some edema, several shallow ulcerations, and some friability. There was no evidence of any mass. There was no gross evidence of Chen's esophagus. I obtained multiple biopsies in the esophagus between 25 and 35 cm. I also obtained tissue and sent that for a viral culture. I then obtained biopsies of the slight nodularity just beneath the EG junction. Proximal to 25 cm the esophageal mucosa appeared normal. The scope was withdrawn from the patient. She was turned around for colonoscopy. The digital rectal exam revealed external hemorrhoids. The Olympus video pediatric colonoscope was entered into the rectum advanced easily to the cecum. Once in the cecum, I did identify normal-appearing cecal pouch with appendiceal orifice and a normal-appearing ileocecal valve. The entire cecum and ileocecal valve appeared normal. There was transillumination of light deep in the lower quadrant. The scope was then slowly withdrawn assessing all mucosal surfaces carefully. Preparation was excellent. I did not visualize any sign of polyps, colitis, nor angiodysplasia. There was a moderate amount of diverticulosis in the sigmoid and descending colon. In the rectum, scope was retroflexed visualizing somewhat inflamed internal hemorrhoids. The remainder of the rectal mucosa appeared normal. Scope was straightened and withdrawn the patient. The scope was withdrawn from the patient. She tolerated both procedures well and was returned to the recovery area in stable condition. IMPRESSION: 1. Esophageal stricture, status post balloon dilation. 2. Erosive esophagitis, rule out CMV. Nodularity in very proximal stomach, status post biopsy. 3. Hiatal hernia. 4. Diverticulosis. 5. Internal and external hemorrhoids. PLAN: The results of the biopsies will be checked. I shall start her on some acid suppression. 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 If the police department secretary would prefer that she avoid a PPI, I shall start her on high dose famotidine 40 mg b.i.d. If she continues to have further difficulty swallowing, she may need a repeat endoscopy with further balloon dilation with a larger balloon. I did not want to use a large balloon today due to the associated inflammation around the stricture. Given her age and the negative colonoscopy, I do not think she will need any further screening colonoscopies. She was advised to stay off all aspirin and NSAIDs for least a week. If things are improved in regard to the swallowing, she could see me as needed. I did advise her that if the hemorrhoids are problematic she should call me and I would refer her to see Dr. Clemente. This has all been discussed with her . MD JAELYN Sigala/SHAYLA / [id number] DIONE
--- NOTE | 2025-03-21 12:25 | P.BOP_ITS ---
Brief Operative Note Date of Service: 03/21/25 Pre-op diagnosis: GERD,Dysphagia, Screening Post-op diagnosis: other (Erosive esophagitis(R/O CMV), Esophageal stricture at EG Junction, Hiatal hernia, Diverticulosis, Internal/External hemorrhoids) Procedure: EGD with biopsies and Balloon Dilation from 15mm to 16.5mm to 18mm, Colonoscopy to the cecum Surgeon: Sanjiv Umana MD Anesthesia: MAC Was an Jewelry Finisher used for this Procedure?: No Estimated blood loss (mL): 2.0 Pathology: other (A. Esophagus 25 to 35cm, R/O CMV B. Proximal stomach just beneath the EG Junction) Condition: stable Disposition: PACU
== END 2025-03-21 10:01 | disposition home or self-care (01) ==
PROVIDERS: PCP Student in an Organized Health Care Education/Training Program; Visit Provider Internal Medicine
PROC: 0DJD8ZZ Inspection of Lower Intestinal Tract, Via Natural or Artificial Opening Endoscopic (ICD-10-PCS; CPT 45378; principal; 2025-03-21 07:30)
PROC: (CPT 43249; 2025-03-21 07:30)
DX: Z12.11 Encounter for screening for malignant neoplasm of colon (principal); K57.30 Diverticulosis of large intestine without perforation or abscess without bleeding; K64.8 Other hemorrhoids; K64.4 Residual hemorrhoidal skin tags; K21.00 Gastro-esophageal reflux disease with esophagitis, without bleeding; K22.2 Esophageal obstruction; K31.89 Other diseases of stomach and duodenum; K44.9 Diaphragmatic hernia without obstruction or gangrene; I10 Essential (primary) hypertension; Z79.899 Other long term (current) drug therapy
CPT/HCPCS: 43249; 43239; G0121; 36415; 87497; 88305; 88312; 88313; 88342; C1726; J2371; J2704